=== PATIENT | female | born 1970 | race Caucasian/White ===

== ENCOUNTER 2019-06-06 15:37 | Inpatient (IN) | payer MEDICAID ==
[~2019-06-06] VITALS: Ht 162.6 cm; Wt 116.0 kg
[2019-06-06 16:16] LABS: BASOPHILS # (AUTO) 0.1 X10'3 (0-0.2); BASOPHILS % (AUTO) 0.9 % (0-1); EOSINOPHILS # (AUTO) 0.1 X10'3 (0-0.9); EOSINOPHILS % (AUTO) 0.9 % (0-6); HEMATOCRIT 43.4 % (35.0-45.0); HEMOGLOBIN 14.2 g/dl (12.0-16.0); LYMPHOCYTES # (AUTO) 2.3 X10'3 (1.1-4.8); LYMPHOCYTES % (AUTO) 28.8 % (21-51); MEAN CORPUSCULAR HEMOGLOBIN 25.2 PG (27.0-31.0); MEAN CORPUSCULAR HGB CONC 32.7 g/dL (33.0-36.5); MEAN PLATELET VOLUME 9.7 FL (7.4-10.4); MONOCYTES # (AUTO) 0.4 X10'3 (0-0.9); MONOCYTES % (AUTO) 5.2 % (2-12); NEUTROPHILS # (AUTO) 5.1 X10'3 (1.8-7.7); NEUTROPHILS % (AUTO) 64.2 % (42-75); PLATELET COUNT 276 X10'3 (140-440); RED BLOOD COUNT 5.64 X10'6 (4.20-5.60); RED CELL DISTRIBUTION WIDTH 15.9 % (11.5-14.5); WHITE BLOOD COUNT 7.9 X10'3 (4.5-11.0)
[2019-06-06 16:28] LABS: ALANINE AMINOTRANSFERASE 23 U/L (12-78); ALBUMIN/GLOBULIN RATIO 0.6 (1.1-1.5); ALKALINE PHOSPHATASE 100 IU/L (46-116); ANION GAP 7 (8-16); ASPARTATE AMINO TRANSFERASE 19 U/L (10-37); BILIRUBIN,TOTAL 0.4 MG/DL (0.1-1.0); BLOOD UREA NITROGEN 17 MG/DL (7-18); BUN/CREATININE RATIO 20.7 (6.6-38.0); CALCIUM 8.6 MG/DL (8.5-10.1); CHLORIDE 104 MMOL/L (99-107); CREATININE 0.82 MG/DL (0.40-0.90); GLUCOSE 266 MG/DL (70-104); POTASSIUM 4.3 MMOL/L (3.5-5.1); SODIUM 135 MMOL/L (135-145); TOTAL CARBON DIOXIDE 24.4 MMOL/L (24-32); TOTAL PROTEIN 7.8 G/DL (6.4-8.2); eGFR 74 ML/MIN
[2019-06-06] MEDS ORDERED: ondansetron 4mg rapidly disintigrating tab PO ONE (16:30)
[2019-06-06] MEDS ORDERED: aminophylline 250mg/10ml inj. IV PRN (17:40)
[2019-06-06] MEDS ORDERED: acetaminophen 325mg tablet PO PRN (17:40)
[2019-06-06] MEDS ORDERED: morphine 2 MG/ML inj. syringe IV PRN ×2 (17:40)
[2019-06-06] MEDS ORDERED: nitroGLYCERIN 0.4mg SUBLingual tab SL PRN ×2 (17:40)
[2019-06-06] MEDS ORDERED: mag hydrox/Alum hydrox/simeth 30ml oral suspension PO PRN (17:40)
[2019-06-06] MEDS ORDERED: magnesium hydroxide 30ml (MOM) UD suspension PO PRN (17:40)
[2019-06-06] MEDS ORDERED: regadenoson 0.4mg/5ml syringe IV ONE (17:40)
[2019-06-06] MEDS ORDERED: ondansetron/PF 4mg/2ml inj IV PRN (17:40)
[2019-06-06] MEDS ORDERED: metoprolol tartrate 1mg/ml inj IV PRN (17:40)
[2019-06-06] MEDS ORDERED: MAGN500T2 PO (17:57)
[2019-06-06] MEDS ORDERED: AMLO5TAB16 PO (17:58)
[2019-06-06] MEDS ORDERED: BUSP15TA7 PO (17:58)
[2019-06-06] MEDS ORDERED: HYDR50TA65 PO (17:58)
[2019-06-06] MEDS ORDERED: LOSA50TA64 PO (17:58)
[2019-06-06] MEDS ORDERED: GABA-532 PO (17:58)
[2019-06-06] MEDS ORDERED: TRIA454O TP (17:58)
[2019-06-06] MEDS ORDERED: INSU100I39 SQ (17:58)
[2019-06-06] MEDS ORDERED: PANT40TA4 PO (17:58)
[2019-06-06] MEDS ORDERED: FURO40TA4 PO (17:58)
[2019-06-06] MEDS ORDERED: CALC60CR5 TP (17:58)
[2019-06-06] MEDS ORDERED: VENL150C58 PO (17:58)
[2019-06-06] MEDS ORDERED: TRAZ-251 PO (17:58)
[2019-06-06] MEDS ORDERED: METF-438 PO (17:58)
[2019-06-06] MEDS ORDERED: AMMO385C4 TP (17:58)
[2019-06-06] MEDS ORDERED: FLUT16SP20 NAS (17:58)
[2019-06-06] MEDS ORDERED: CETI10TA14 PO (17:58)
[2019-06-06] MEDS ORDERED: CLOT30CR TP (17:58)
[2019-06-06] MEDS ORDERED: ROSU20TA31 PO (17:58)
[2019-06-06] MEDS ORDERED: INSU100I31 SQ (17:58)
[2019-06-06] MEDS ORDERED: DESO15CR13 TP (17:58)
--- NOTE | 2019-06-06 18:16 | NUR ---
pt up to the bathroom. She said she feels completely normal now and is very happy. She said that airplane scared that rhythmn right out of her.
--- NOTE | 2019-06-06 18:23 | NUR ---
pt sitting EOB eating supper.
[2019-06-06] MEDS ORDERED: CLOB50FO8 TP (18:42)
[2019-06-06] MEDS ORDERED: ASPI-611 PO (18:42)
[2019-06-06] MEDS ORDERED: METR250T PO (18:42)
[2019-06-06] MEDS ORDERED: VENL37.586 PO (18:42)
[2019-06-06] MEDS ORDERED: NITR0.4T51 SL (18:42)
[2019-06-06] MEDS ORDERED: FEXO-62 PO (18:42)
[2019-06-06 19:35] VITALS: BP 113/67
[2019-06-06] MEDS: heparin, porcine 5000 units/ml vial SQ SCH (20:21)
[2019-06-06] MEDS: carVEDilol 3.125mg tablet PO SCH (20:21)
[2019-06-06] MEDS ORDERED: traZODone 150mg tablet PO ONE (21:33)
[2019-06-06] MEDS ORDERED: gabapentin 400mg capsule PO ONE (21:35)
[2019-06-06] MEDS: hydrOXYzine 25 MG tablet PO PRN (22:35)
[2019-06-06 23:30] LABS: HEMOGLOBIN A1C 11.1 % (4.5-6.2)
[2019-06-07] VITALS (16 sets, daily range): BP systolic 102–133; BP diastolic 56–83
[2019-06-07] MEDS ORDERED: MESSAGE TO PHARMACY PO ONE (02:05)
[2019-06-07] MEDS ORDERED: glucagon, human recombinant 1mg kit SUBCUT PRN (02:05)
[2019-06-07] MEDS ORDERED: dextrose ORAL solution 15 GM/59 ML bottle PO PRN ×2 (02:05)
[2019-06-07] MEDS ORDERED: dextrose 50%-water 50ml dispensing syringe IV PRN ×2 (02:05)
[2019-06-07 06:10] LABS: ALBUMIN 2.5 G/DL (3.4-5.0); ANION GAP 9 (8-16); BLOOD UREA NITROGEN 20 MG/DL (7-18); BUN/CREATININE RATIO 23.5 (6.6-38.0); CALCIUM 8.3 MG/DL (8.5-10.1); CHLORIDE 102 MMOL/L (99-107); CREATININE 0.85 MG/DL (0.40-0.90); GLUCOSE 321 MG/DL (70-104); SODIUM 134 MMOL/L (135-145); eGFR 71 ML/MIN
[2019-06-07 06:19] LABS: POTASSIUM 4.1 MMOL/L (3.5-5.1)
--- NOTE | 2019-06-07 06:20 | NUR ---
Problems reprioritized. Patient report given, questions answered & plan of care reviewed with Daysi RILEY.
--- NOTE | 2019-06-07 06:39 | NUR ---
Patient in room PCU 3023. I have received report from James RILEY and had the opportunity to ask questions and assume patient care.
[2019-06-07 06:42] LABS: CLARITY,URINE SLIGHTLY CLOUDY (Clear); COLOR,URINE STRAW (Yellow); GLUCOSE, URINE >=1000 mg/dl (Neg); KETONES,URINE NEGATIVE (Neg); LEUKOCYTE ESTERASE ,URINE NEGATIVE (Neg); NITRITES, URINE NEGATIVE (Neg); OCCULT BLOOD,URINE NEGATIVE (Neg); PH,URINE 5.5 (4.8-8.0); PROTEIN,URINE NEGATIVE (Neg); UROBILINOGEN,URINE 0.2 E.U/dL (0.2-1.0)
[2019-06-07 06:44] LABS: UA COLLECTION TYPE NON-SPECIFIED
[2019-06-07 06:51] LABS: BACTERIA,URINE FEW /HPF (Neg); MUCUS STRANDS NONE SEEN /LPF (Neg); RBC,URINE NONE SEEN /HPF (0-2); RENAL CELLS, URINE FEW /HPF; SQUAMOUS EPITHELIAL CELL,UR MODERATE /LPF (FEW); WBC,URINE 0-4 /HPF (0-4)
[2019-06-07 07:05] LABS: BASOPHILS % (AUTO) 0.8 % (0-1); EOSINOPHILS # (AUTO) 0.2 X10'3 (0-0.9); EOSINOPHILS % (AUTO) 2.8 % (0-6); HEMATOCRIT 40.6 % (35.0-45.0); HEMOGLOBIN 13.2 g/dl (12.0-16.0); LYMPHOCYTES # (AUTO) 2.2 X10'3 (1.1-4.8); LYMPHOCYTES % (AUTO) 36.6 % (21-51); MEAN CORPUSCULAR HEMOGLOBIN 25.4 PG (27.0-31.0); MEAN CORPUSCULAR HGB CONC 32.4 g/dL (33.0-36.5); MEAN CORPUSCULAR VOLUME 78.3 FL (78-98); MEAN PLATELET VOLUME 9.2 FL (7.4-10.4); MONOCYTES # (AUTO) 0.4 X10'3 (0-0.9); MONOCYTES % (AUTO) 6.1 % (2-12); NEUTROPHILS # (AUTO) 3.3 X10'3 (1.8-7.7); NEUTROPHILS % (AUTO) 53.7 % (42-75); PLATELET COUNT 205 X10'3 (140-440); RED BLOOD COUNT 5.19 X10'6 (4.20-5.60); RED CELL DISTRIBUTION WIDTH 15.9 % (11.5-14.5); WHITE BLOOD COUNT 6.1 X10'3 (4.5-11.0)
[2019-06-07 07:10] LABS: URINE AMPHETAMINE SCREEN NEGATIVE (Neg); URINE BARBITUATE SCREEN NEGATIVE (Neg); URINE BENZODIAZEPINES SCREEN NEGATIVE (Neg); URINE CANNABINOID SCREEN NEGATIVE (Neg); URINE COCAINE SCREEN NEGATIVE (Neg); URINE METHADONE SCREEN NEGATIVE (Neg); URINE OPIATE SCREEN POSITIVE (Neg); URINE PHENCYCLIDINE SCREEN NEGATIVE (Neg)
[2019-06-07] MEDS: insulin Lispro (HumaLOG) vial - multi-dose SQ SCH ×3 (07:55→20:55)
[2019-06-07] MEDS: heparin, porcine 5000 units/ml vial SQ SCH ×2 (07:56→20:37)
[2019-06-07] MEDS: aspirin 81mg tablet.DR PO SCH (07:59)
[2019-06-07] MEDS ORDERED: atorvastatin 20mg tablet PO SCH (08:00)
[2019-06-07] MEDS: hydrOXYzine 25 MG tablet PO PRN ×3 (08:03→21:01)
[2019-06-07] MEDS ORDERED: HYDROXYZINE HCL PO PRN (09:50)
[2019-06-07] MEDS ORDERED: traZODone 50mg tablet PO PRN (09:50)
[2019-06-07] MEDS ORDERED: loratadine 10mg tablet PO PRN (10:38)
[2019-06-07] MEDS: carVEDilol 3.125mg tablet PO SCH ×2 (12:00→20:38)
[2019-06-07] MEDS: gabapentin 300mg capsule PO SCH ×2 (12:11→20:38)
[2019-06-07] MEDS: losartan 50mg tablet PO SCH (12:11)
[2019-06-07] MEDS: venlafaxine XR 37.5mg cap (Q24H) PO SCH (12:18)
--- NOTE | 2019-06-07 14:51 | NUR ---
DM consult: Pt with A1c 11.1 seen at bedside. Pt reports she has recently been seeing her MD q month for DM management. Pt states she takes her insulin and PO DM meds per rx however occasionally will miss one dose in a day because she forgets or slept in late. Pt states she doesn't always check her BG levels because of issues with her glucometer that has been going on for the last ten years. [address] encouraged pt to discuss glucometer issues with her MD. Pt states she recently moved to [place] from [place] about a year ago and since her move her BG levels have been 240-260, which is down from frequently being in the 500s prior to her move. Pt states her A1c was around 10.1 when she moved to [place] and states she has been less active resulting in wt gain since moving. Pt provided with thorough written and verbal DM education with referral to outpatient CDE course. Pt states she is interested in establishing an desizing machine back tender and getting better management of her diabetes. RD contact information provided. Pt endorses a good appetite which is evident with documented 100% PO intake on heart healthy CHO controlled diet. Pt requests a banana q breakfast and caffeine free ice tea x 2 BIDLD, d/w dietary. Pt denies food allergies however reports she had an allergy test done last year which suggested possible allergy to wheat however pt states she still consumes wheat without issues. Pt denies any difficulty chewing/swallowing. Will continue to follow. Addendum: 06/07/19 at [address] Amended: Links added.
[2019-06-07] MEDS ORDERED: magnesium oxide 400mg tablet PO SCH (17:00)
[2019-06-07] MEDS ORDERED: verapamil 2.5 mg/ml inj IV ONE (17:31)
[2019-06-07] MEDS ORDERED: LIDOcaine 1% (10mg/ml)w/preservative injection 20ml MDV ONE (17:32)
[2019-06-07] MEDS ORDERED: nitroGLYCERIN-Tridil 50MG/D5W 250 ML IV ONE (17:32)
[2019-06-07] MEDS ORDERED: iohexol 350MG/ML 100ml bottle IV ONE (17:32)
[2019-06-07] MEDS ORDERED: midazolam 2 mg/2 ml injection ONE (17:32)
[2019-06-07] MEDS ORDERED: iohexol 350 MG/ML 50ML vial IV ONE (17:32)
[2019-06-07] MEDS ORDERED: heparin 1,000 UNITS/NS 500ml 500 ML ONE (17:32)
[2019-06-07] MEDS ORDERED: fentaNYL/PF 50MCG/1 ML 2ML syringe ONE (17:32)
[2019-06-07] MEDS ORDERED: heparin 1,000unit/ml 10ml vial 10 ML ONE (17:32)
--- NOTE | 2019-06-07 18:41 | NUR ---
Problems reprioritized. Patient report given, questions answered & plan of care reviewed with Gibran RN.
--- NOTE | 2019-06-07 18:45 | NUR ---
Patient in room PCU 3023. I have received report from Daysi RILEY and had the opportunity to ask questions and assume patient care.
[2019-06-07 18:55] LABS: ISTAT Hct MIX 37 %PCV (35-48); ISTAT O2 SATURATION MIX VENOUS 62 % (60-80); ISTAT SOURCE MIX
[2019-06-07] MEDS: DESONIDE 0.05% TOP SCH (20:00)
[2019-06-07] MEDS: CALCIPOTRIENE 0.005% TOP SCH (20:00)
[2019-06-07] MEDS: pantoprazole 40mg Tablet.DR PO SCH (20:38)
[2019-06-07] MEDS: mineral oil/petrolatum, white cream 113gm jar TP SCH (20:43)
[2019-06-07] MEDS ORDERED: insulin glargine (Lantus) pen - multi-dose SQ SCH (21:00)
[2019-06-08 03:00] VITALS: BP 119/76
[2019-06-08 03:08] LABS: BASOPHILS % (AUTO) 0.4 % (0-1); EOSINOPHILS # (AUTO) 0.2 X10'3 (0-0.9); EOSINOPHILS % (AUTO) 2.7 % (0-6); HEMATOCRIT 37.2 % (35.0-45.0); HEMOGLOBIN 12.1 g/dl (12.0-16.0); LYMPHOCYTES # (AUTO) 1.9 X10'3 (1.1-4.8); LYMPHOCYTES % (AUTO) 28.5 % (21-51); MEAN CORPUSCULAR HEMOGLOBIN 25.5 PG (27.0-31.0); MEAN CORPUSCULAR HGB CONC 32.5 g/dL (33.0-36.5); MEAN CORPUSCULAR VOLUME 78.4 FL (78-98); MEAN PLATELET VOLUME 9.4 FL (7.4-10.4); MONOCYTES # (AUTO) 0.4 X10'3 (0-0.9); MONOCYTES % (AUTO) 5.9 % (2-12); NEUTROPHILS # (AUTO) 4.1 X10'3 (1.8-7.7); NEUTROPHILS % (AUTO) 62.5 % (42-75); PLATELET COUNT 230 X10'3 (140-440); RED BLOOD COUNT 4.74 X10'6 (4.20-5.60); RED CELL DISTRIBUTION WIDTH 15.5 % (11.5-14.5); WHITE BLOOD COUNT 6.6 X10'3 (4.5-11.0)
[2019-06-08 03:12] LABS: ALBUMIN 2.6 G/DL (3.4-5.0); ANION GAP 3 (8-16); BLOOD UREA NITROGEN 22 MG/DL (7-18); BUN/CREATININE RATIO 27.2 (6.6-38.0); CALCIUM 7.9 MG/DL (8.5-10.1); CHLORIDE 101 MMOL/L (99-107); CHOL/HDL RATIO 5.6 (0.00-4.99); CHOLESTEROL 180 MG/DL (0-200); CREATININE 0.81 MG/DL (0.40-0.90); GLUCOSE 273 MG/DL (70-104); HDL CHOLESTEROL 32 MG/DL (35-60); LDL CHOLESTEROL 107 MG/DL (50-100); POTASSIUM 3.8 MMOL/L (3.5-5.1); SODIUM 132 MMOL/L (135-145); TOTAL CARBON DIOXIDE 28.1 MMOL/L (24-32); TRIGLYCERIDES 293 MG/DL (20-135); eGFR 75 ML/MIN
[2019-06-08] MEDS ORDERED: normal saline 1000ml 1,000 ML IV SCH (05:25)
[2019-06-08 06:00] VITALS: BP 115/64
--- NOTE | 2019-06-08 06:42 | NUR ---
Patient in room PCU 3023. I have received report from Gibran RILEY and had the opportunity to ask questions and assume patient care.
--- NOTE | 2019-06-08 06:55 | NUR ---
Problems reprioritized. Patient report given, questions answered & plan of care reviewed with Daysi RILEY.
[2019-06-08] MEDS ORDERED: non-formulary drug (Aspirin (Aspir 81) 1 TAB) PO SCH (08:00)
[2019-06-08] MEDS: DESONIDE 0.05% TOP SCH (08:00)
[2019-06-08] MEDS ORDERED: carvedilol 6.25mg tablet PO SCH (08:00)
[2019-06-08] MEDS: CALCIPOTRIENE 0.005% TOP SCH (08:00)
[2019-06-08] MEDS ORDERED: atorvastatin 20mg tablet PO SCH (08:00)
[2019-06-08] MEDS: aspirin 81mg tablet.DR PO SCH (08:13)
[2019-06-08] MEDS: losartan 50mg tablet PO SCH (08:13)
[2019-06-08] MEDS: gabapentin 300mg capsule PO SCH ×2 (08:14→13:11)
[2019-06-08] MEDS: hydrOXYzine 25 MG tablet PO PRN ×2 (08:14→13:11)
[2019-06-08] MEDS: mineral oil/petrolatum, white cream 113gm jar TP SCH (08:15)
[2019-06-08] MEDS: insulin Lispro (HumaLOG) vial - multi-dose SQ SCH ×2 (08:29→13:14)
[2019-06-08] MEDS: pantoprazole 40mg Tablet.DR PO SCH (08:34)
[2019-06-08] MEDS ORDERED: APIX5TAB3 PO (10:26)
[2019-06-08] MEDS ORDERED: ROSU40TA PO (10:26)
[2019-06-08] MEDS ORDERED: CARV6.253 PO (10:26)
[2019-06-08] MEDS: venlafaxine XR 37.5mg cap (Q24H) PO SCH (10:49)
--- NOTE | 2019-06-08 13:30 | NUR ---
Pt remained stable. VSS. IV d/leonor cath intact no s/s of complications. All discharge instructions given, and pt stated understanding to all. All belongings accounted for. Pt taken via wheelchair to [employer] bus driver taking her back to [facility].
[2019-06-11 08:36] LABS: ISTAT HGB ART 12.2 g/dl (12.0-16.0); ISTAT Hct ART 36 %PCV (35-48); ISTAT O2 SATURATION ARTERIAL 93 % (95-98); ISTAT SOURCE ART
== END 2019-06-08 13:25 | disposition home or self-care (01) | DRG 191 ==
LOC: ER 15:39 → ED HOLD 17:40 → OBSVTOIN 17:40 → PCU 3S 19:54
PROVIDERS: ADMIT Family Medicine; ATTEND Family Medicine
PROC: 4A023N8 Measurement of Cardiac Sampling and Pressure, Bilateral, Percutaneous Approach (ICD-10-PCS; principal; 2019-06-07)
PROC: B2111ZZ Fluoroscopy of Multiple Coronary Arteries using Low Osmolar Contrast (ICD-10-PCS; 2019-06-07)
PROC: B2151ZZ Fluoroscopy of Left Heart using Low Osmolar Contrast (ICD-10-PCS; 2019-06-07)
PROC: 4A02XM4 Measurement of Cardiac Total Activity, External Approach (ICD-10-PCS; 2019-06-07)
PROC: 3E073KZ Introduction of Other Diagnostic Substance into Coronary Artery, Percutaneous Approach (ICD-10-PCS; 2019-06-07)
DX: I25.10 Atherosclerotic heart disease of native coronary artery without angina pectoris (principal); I11.0 Hypertensive heart disease with heart failure; E66.01 Morbid (severe) obesity due to excess calories; I50.9 Heart failure, unspecified; I48.0 Paroxysmal atrial fibrillation; E11.9 Type 2 diabetes mellitus without complications; E78.5 Hyperlipidemia, unspecified; G47.30 Sleep apnea, unspecified; F41.8 Other specified anxiety disorders; Z79.01 Long term (current) use of anticoagulants; Z79.4 Long term (current) use of insulin; Z82.49 Family history of ischemic heart disease and other diseases of the circulatory system; Z86.73 Personal history of transient ischemic attack (TIA), and cerebral infarction without residual deficits; Z90.710 Acquired absence of both cervix and uterus; Z90.49 Acquired absence of other specified parts of digestive tract; Z68.41 Body mass index [BMI] 40.0-44.9, adult; Z79.899 Other long term (current) drug therapy
CPT/HCPCS: 36415; 71045; 78452; 80048; 80053; 80061; 80305; 81001; 82803; 82948; 83036; 84484; 85014; 85025; 87081; 93005; 93017; 93306; 93460; 99152; 99153; 99285; A4620; A5120; A9500; C1769; C1894; G0378; J1644; J1815; J2001; J2250; J2270; J2785; J3010; J3490; Q9967; Z7610

== ENCOUNTER 2020-01-27 23:10 | Emergency (ER) | payer MEDICAID ==
[~2020-01-27] VITALS: Ht 162.6 cm; Wt 111.8 kg
[~2020-01-27 23:10] MED LIST: AMMO385C4 TP; APIX5TAB3 PO; ASPI-611 PO; CALC60CR5 TP; CARV6.253 PO; CLOB50FO8 TP; DESO15CR13 TP; FEXO-62 PO; FLUT16SP20 NAS; GABA-532 PO; HYDR50TA65 PO; INSU100I31 SQ; INSU100I39 SQ; LOSA50TA64 PO; MAGN500T2 PO; METF-438 PO; NITR0.4T51 SL; PANT40TA54 PO; ROSU40TA PO; TRAZ-251 PO; TRIA454O TP; VENL37.586 PO
[2020-01-27 23:27] LABS: BASOPHILS # (AUTO) 0.1 X10'3 (0-0.2); BASOPHILS % (AUTO) 0.8 % (0-1); EOSINOPHILS # (AUTO) 0.2 X10'3 (0-0.9); EOSINOPHILS % (AUTO) 3.2 % (0-6); HEMATOCRIT 33.1 % (35.0-45.0); HEMOGLOBIN 10.9 g/dl (12.0-16.0); LYMPHOCYTES # (AUTO) 1.5 X10'3 (1.1-4.8); LYMPHOCYTES % (AUTO) 19.6 % (21-51); MEAN CORPUSCULAR HEMOGLOBIN 26.3 PG (27.0-31.0); MEAN CORPUSCULAR HGB CONC 32.8 g/dL (33.0-36.5); MEAN CORPUSCULAR VOLUME 80.1 FL (78-98); MEAN PLATELET VOLUME 9.1 FL (7.4-10.4); MONOCYTES # (AUTO) 0.4 X10'3 (0-0.9); MONOCYTES % (AUTO) 4.8 % (2-12); NEUTROPHILS # (AUTO) 5.3 X10'3 (1.8-7.7); NEUTROPHILS % (AUTO) 71.6 % (42-75); PLATELET COUNT 257 X10'3 (140-440); RED BLOOD COUNT 4.13 X10'6 (4.20-5.60); RED CELL DISTRIBUTION WIDTH 15.7 % (11.5-14.5); WHITE BLOOD COUNT 7.4 X10'3 (4.5-11.0)
[2020-01-27 23:38] LABS: PARTIAL THROMBOPLASTIN TIME 22 SECONDS (22-32)
[2020-01-27 23:39] LABS: ALANINE AMINOTRANSFERASE 27 U/L (12-78); ALBUMIN 2.9 G/DL (3.4-5.0); ALBUMIN/GLOBULIN RATIO 0.6 (1.1-1.5); ALKALINE PHOSPHATASE 75 IU/L (46-116); ANION GAP 6 (8-16); ASPARTATE AMINO TRANSFERASE 15 U/L (10-37); BILIRUBIN,TOTAL 0.2 MG/DL (0.1-1.0); BLOOD UREA NITROGEN 26 MG/DL (7-18); BUN/CREATININE RATIO 33.3 (6.6-38.0); CALCIUM 8.5 MG/DL (8.5-10.1); CHLORIDE 102 MMOL/L (99-107); CREATININE 0.78 MG/DL (0.40-0.90); GLUCOSE 172 MG/DL (70-104); POTASSIUM 4.4 MMOL/L (3.5-5.1); SODIUM 136 MMOL/L (135-145); TOTAL CARBON DIOXIDE 27.8 MMOL/L (24-32); TOTAL PROTEIN 7.4 G/DL (6.4-8.2); eGFR 78 ML/MIN
[2020-01-27 23:43] LABS: TROPONIN I < 0.04 NG/ML (0.0-0.05)
--- NOTE | 2020-01-28 00:49 | NUR ---
amr called for transport back to [facility]
[2020-01-28 05:03] VITALS: BP 100/56
== END 2020-01-28 05:04 | disposition home or self-care (01) ==
LOC: ER 23:11
DX: R20.2 Paresthesia of skin (principal); R53.1 Weakness; Z86.73 Personal history of transient ischemic attack (TIA), and cerebral infarction without residual deficits; I11.0 Hypertensive heart disease with heart failure; I50.9 Heart failure, unspecified; E11.9 Type 2 diabetes mellitus without complications; Z79.82 Long term (current) use of aspirin; Z79.4 Long term (current) use of insulin; Z79.899 Other long term (current) drug therapy
CPT/HCPCS: 36415; 70450; 71045; 80053; 82948; 84484; 85025; 85610; 85730; 93005; 99285